=== PATIENT | female | born 1990 | race African-American/Black ===

== ENCOUNTER 2017-06-11 10:22 | Emergency (ER) | payer BC, MEDICAID ==
[~2017-06-11] VITALS: Ht 149.9 cm; Wt 39.5 kg
[~2017-06-11 10:22] MED LIST: BACTRIM DS TAB1 EAC1 ORAL; FLOXIN OTIC10 DROP OT; IBUPROFEN600 MG ORAL; KEFLEX500 MG ORAL; NKM; TYLENOL325 MG ORAL; ZOFRAN4 M1 ORAL
[2017-06-11] MEDS ORDERED: PRENATAL FORMU1 EAC4 PO (10:31)
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
[2017-06-11 11:10] LABS: EOSINOPHILS % (AUTO) 1.7 % (0.0-3.0); HEMOGLOBIN 13.2 G/DL (12.0-16.0); LYMPHOCYTES % (AUTO) 27.9 % (20.0-45.0); MEAN CORPUSCULAR VOLUME 91 FL (80-99); MONOCYTES % (AUTO) 3.9 % (1.0-10.0); NEUTROPHILS % (AUTO) 65.5 % (45.0-75.0); PLATELET COUNT 240 K/UL (150-450); RED BLOOD COUNT 4.16 M/UL (4.20-5.40); RED CELL DISTRIBUTION WIDTH 12.4 % (11.6-14.8); WHITE BLOOD COUNT 4.3 K/UL (4.8-10.8)
[2017-06-11 11:11] LABS: APPEARANCE,URINE CLEAR; BILIRUBIN, URINE NEGATIVE (NEGATIVE); COLOR,URINE PALE YELLOW; GLUCOSE, URINE (UA) NEGATIVE (NEGATIVE); KETONES,URINE NEGATIVE (NEGATIVE); LEUKOCYTE ESTERASE ,URINE NEGATIVE (NEGATIVE); NITRITE,URINE NEGATIVE (NEGATIVE); PH,URINE 8 (4.5-8.0); PROTEIN,URINE NEGATIVE (NEGATIVE); UROBILINOGEN,URINE NORMAL MG/DL (0.0-1.0)
[2017-06-11 11:27] LABS: ANION GAP 10 mmol/L (5-15); BLOOD UREA NITROGEN 5 mg/dL (7-18); CARBON DIOXIDE 26 MMOL/L (21-32); CHLORIDE 98 MMOL/L (98-107); CREATININE 0.4 MG/DL (0.55-1.30); POTASSIUM 3.6 MMOL/L (3.5-5.1); SODIUM 134 MMOL/L (136-145)
[2017-06-11 11:31] LABS: ALANINE AMINOTRANSFERASE 21 U/L (12-78); ALBUMIN 3.6 G/DL (3.4-5.0); ALBUMIN/GLOBULIN RATIO 0.9 (1.0-2.7); ALKALINE PHOSPHATASE 47 U/L (46-116); ASPARTATE AMINO TRANSFERASE 20 U/L (15-37); BILIRUBIN,TOTAL 0.3 MG/DL (0.2-1.0)
[2017-06-11 12:47] VITALS: BP 116/85
== END 2017-06-11 12:48 | disposition home or self-care (01) ==
LOC: EMR 11:10
DX: O20.0 Threatened abortion (principal); Z3A.12 12 weeks gestation of pregnancy
CPT/HCPCS: 36415; 80053; 81003; 81025; 83690; 84702; 85025; 86850; 86900; 86901; 99283

== ENCOUNTER 2018-12-20 10:39 | Emergency (ER) | payer MEDICAID ==
[~2018-12-20] VITALS: Ht 149.9 cm; Wt 43.1 kg
[~2018-12-20 10:39] MED LIST changes: +PRENATAL FORMU1 EAC4 PO
[2018-12-20 11:00] VITALS: BP 117/81
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
[2018-12-20 12:10] VITALS: BP 118/78
--- NOTE | 2018-12-20 12:10 | NUR ---
ED Nurse Note: pt is stable and will be d/c home with f/u instructions to see her PCP with any conerns or questions. pt is able to ambulate and is accompanied by spouse and family. pt understands to return to ED if her symptoms worsen or for any other concerns.
[2018-12-20] MEDS ORDERED: IBUPROFEN600 MG ORAL (12:28)
== END 2018-12-20 12:32 | disposition home or self-care (01) ==
LOC: EMR 11:47
DX: S16.1XXA Strain of muscle, fascia and tendon at neck level, initial encounter (principal); V43.62XA Car passenger injured in collision with other type car in traffic accident, initial encounter; Y92.410 Unspecified street and highway as the place of occurrence of the external cause
CPT/HCPCS: 99282